=== PATIENT | female | born 1970 ===

== ENCOUNTER 2016-05-23 14:24 | Emergency (ER) | payer OTHER ==
[~2016-05-23 14:24] MED LIST: ALLEGRA ALLERG180 MG PO; BACLOFEN10 MG PO; CALCIUM/VITAMI600 MG PO; DOK100 M1 PO; ESTRADIOL2 MG PO; FEXOFENADINE H180 MG PO; FLOVENT HFA110 MCG IN; NEXIUM40 M1 PO; NORCO1 TA1 PO; ONDANSETRON HCL4 MG PO; PROVENTIL HFA; RIZATRIPTAN BEN10 M1; TOPAMAX25 MG PO
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
--- NOTE | 2016-05-23 16:40 | ED ORDER SUMMARY ---
..... Patient: XIAO ROBERTO OrderSheet [facility] VisitID: [id number] [address] [place] [address] 46y, F Registration Date/Time: 05/23/2016 ORDER SHEET Weight: 115.6 kg (stated) Allergies: Doxycycline, Morphine Sulfate, Tegretol GENERAL ORDERS: CT Sinus/Facial Bones wo Cont Urgent (15:16 05/23/2016 HBivens A.R.N.P.) (Ack 15:21 RIouse ER Tech1) (16:11 MCampbell) Cervical Spine 2 or 3V Urgent (15:16 05/23/2016 HBivens A.R.N.P.) (Ack 15:21 NHouse ER Tech1) (16:11 MCampbell) CT Head wo Cont Urgent (15:16 05/23/2016 HBivens A.R.N.P.) (Ack 15:21 RIouse ER Tech1) (16:11 MCampbell) Breathalyzer (15:18 05/23/2016 HBivens A.R.N.P.) (15:24 TJayne R.N.) MEDICATION ORDERS: Toradol IM 60 mg (NOW) (16:33 05/23/2016 HBivens A.R.N.P.) (16:48 TJayne R.N.) IV FLUIDS: ORDER SHEET NOTES: [Electronically signed by Piedad OntiverosR.N.PDanis (17:16 05/23/2016)] [Electronically signed by Phyllis Burgos R.N. (11:29 05/25/2016)] [Electronically locked/signed by Phyllis Burgos R.N. (11:29 05/25/2016)]
--- NOTE | 2016-05-23 16:40 | ED ORDER SUMMARY ---
..... Patient: XIAO ROBERTO OrderSheet [facility] VisitID: [id number] [address] [place] [address] 46y, F Registration Date/Time: 05/23/2016 ORDER SHEET Weight: 115.6 kg (stated) Allergies: Doxycycline, Morphine Sulfate, Tegretol GENERAL ORDERS: CT Sinus/Facial Bones wo Cont Urgent (15:16 05/23/2016 HBivens A.R.N.P.) (Ack 15:21 TNouse ER Tech1) (16:11 MCampbell) Cervical Spine 2 or 3V Urgent (15:16 05/23/2016 HBivens A.R.N.P.) (Ack 15:21 NHouse ER Tech1) (16:11 MCampbell) CT Head wo Cont Urgent (15:16 05/23/2016 HBivens A.R.N.P.) (Ack 15:21 TNouse ER Tech1) (16:11 MCampbell) Breathalyzer (15:18 05/23/2016 HBivens A.R.N.P.) (15:24 TJayne R.N.) MEDICATION ORDERS: Toradol IM 60 mg (NOW) (16:33 05/23/2016 HBivens A.R.N.P.) (16:48 TJayne R.N.) IV FLUIDS: ORDER SHEET NOTES: [Electronically signed by Piedad OntiverosR.N.PDanis (17:16 05/23/2016)] [Electronically signed by Phyllis Burgos R.N. (11:29 05/25/2016)] [Electronically locked/signed by Phyllis Burgos R.N. (11:29 05/25/2016)]
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
--- NOTE | 2016-05-25 11:30 | ED MED RECONCILIATION SUMMARY ---
Patient: XIAO ROBERTO Medication Reconciliation Report [facility] VisitID: [id number] [address] [place] [address] 46y, F Registration Date/Time: 05/23/2016 Weight: 115.6 kg Height/Length: 64 in. BMI: 43.8 ALLERGIES: Doxycycline, Morphine Sulfate, Tegretol The patient's Home Medications are listed below: THE FOLLOWING MEDICATIONS NEED TO BE RECONCILED: [place]away Ophthalmic Albuterol Inhalation 2 puffs, PRN Baclofen Oral (10 mg) 1 tablet, 2x a day Calcium + D Oral Docusate 100 mg BID Esomeprazole Magnesium Oral 40 mg, daily Estradiol Oral 2 mg daily Fexofenadine HCl Oral 180 mg Ondansetron Oral 4 mg, 4x a day Rizatriptan Benzoate Oral 10 mg, SL for migraines Topiramate Oral (50 mg) 1 tablet, daily The source(s) of the original Home Medication information: Not obtained. The following Medications were given to the patient in the Emergency Department: Toradol [IM] IM 60 mg, administered: 05/23/2016 4:48:00 PM The following Medications were prescribed to the patient: Naproxen 500 mg tablets: take 1 orally every 12 hours as needed for pain. Dispense twenty (20). No refills. -- Piedad Ontiveros A.R.N.P.
--- NOTE | 2016-05-25 11:30 | ED MAR SUMMARY ---
..... Medication Administration Record [facility] [address] [place] [address] Patient: XIAO ROBERTO Visit ID: [id number] 46y, F Weight: 115.6 kg Height/Length: 64 in BMI: 43.8 ALLERGIES: Doxycycline, Morphine Sulfate, Tegretol Given 16:48 05/23/2016 Phyllis Burgos R.N. Medication Administered: TORADOL [IM] (KETOROLAC TROMETHAMINE), Dose: 60 mg IM. Medication Ordered: Toradol IM 60 mg (NOW).
--- NOTE | 2016-05-25 11:30 | ED MAR SUMMARY ---
..... Medication Administration Record [facility] [address] [place] [address] Patient: XIAO ROBERTO Visit ID: [id number] 46y, F Weight: 115.6 kg Height/Length: 64 in BMI: 43.8 ALLERGIES: Doxycycline, Morphine Sulfate, Tegretol Given 16:48 05/23/2016 Phyllis Burgos R.N. Medication Administered: TORADOL [IM] (KETOROLAC TROMETHAMINE), Dose: 60 mg IM. Medication Ordered: Toradol IM 60 mg (NOW).
--- NOTE | 2016-05-25 11:30 | ED MED RECONCILIATION SUMMARY ---
Patient: XIAO ROBERTO Medication Reconciliation Report [facility] VisitID: [id number] [address] [place] [address] 46y, F Registration Date/Time: 05/23/2016 Weight: 115.6 kg Height/Length: 64 in. BMI: 43.8 ALLERGIES: Doxycycline, Morphine Sulfate, Tegretol The patient's Home Medications are listed below: THE FOLLOWING MEDICATIONS NEED TO BE RECONCILED: [place]away Ophthalmic Albuterol Inhalation 2 puffs, PRN Baclofen Oral (10 mg) 1 tablet, 2x a day Calcium + D Oral Docusate 100 mg BID Esomeprazole Magnesium Oral 40 mg, daily Estradiol Oral 2 mg daily Fexofenadine HCl Oral 180 mg Ondansetron Oral 4 mg, 4x a day Rizatriptan Benzoate Oral 10 mg, SL for migraines Topiramate Oral (50 mg) 1 tablet, daily The source(s) of the original Home Medication information: Not obtained. The following Medications were given to the patient in the Emergency Department: Toradol [IM] IM 60 mg, administered: 05/23/2016 4:48:00 PM The following Medications were prescribed to the patient: Naproxen 500 mg tablets: take 1 orally every 12 hours as needed for pain. Dispense twenty (20). No refills. -- Piedad Ontiveros A.R.N.P.
== END 2016-05-23 16:50 | disposition home or self-care (01) ==
LOC: ED SRH 14:24
DX: S16.1XXA Strain of muscle, fascia and tendon at neck level, initial encounter (principal); S00.12XA Contusion of left eyelid and periocular area, initial encounter; S00.83XA Contusion of other part of head, initial encounter; S40.021A Contusion of right upper arm, initial encounter; S40.022A Contusion of left upper arm, initial encounter; S50.11XA Contusion of right forearm, initial encounter; S50.12XA Contusion of left forearm, initial encounter; Y04.0XXA Assault by unarmed brawl or fight, initial encounter; Y92.009 Unspecified place in unspecified non-institutional (private) residence as the place of occurrence of the external cause